=== PATIENT | female | born 1970 | race Caucasian/White ===

== ENCOUNTER 2016-12-06 21:02 | Emergency (ER) | payer OTHER ==
[2016-12-06 23:47] LABS: BASO % 0.3 % (0.1-1.2); EOS # 0.4 10_X3_uL (0.0-0.4); EOS % 4.6 % (0.7-5.8); GRAN # 5.6 10_X3_uL (1.6-6.1); GRAN % 64.2 % (34.0-71.1); HEMATOCRIT 31.3 % (34-45); LYMPH % 23.1 % (19.3-51.7); MEAN CORPUSCULAR HEMOGLOBIN 21.2 pg (27.0-33.0); MEAN CORPUSCULAR HGB CONC 29.4 g/dL (32.0-36.0); MEAN CORPUSCULAR VOLUME 72.3 fL (79-95); MEAN PLATELET VOLUME 9.6 fl (7.5-11.5); MONO # 0.7 10_X3_uL (0.2-0.9); MONO % 7.8 % (4.7-12.5); PLATELET COUNT 466 x10_3/uL (182-369); RED BLOOD COUNT 4.33 x10_6/uL (3.9-5.2); RED CELL DISTRIBUTION WIDTH 18.4 % (11.7-14.4); WHITE BLOOD COUNT 8.7 x10_3/uL (4.0-10.0)
[2016-12-06 23:57] LABS: BLOOD UREA NITROGEN 15 mg/dL (7-18); CARBON DIOXIDE 24 mmol/L (21-32); CREATININE 0.9 mg/dL (0.6-1.3); GLUCOSE,RANDOM 106 mg/dL (70-99); POTASSIUM 3.6 mmol/L (3.5-5.1); SODIUM 137 mmol/L (136-145)
[2016-12-06 23:59] LABS: HEMOGLOBIN 9.2 g/dL (11.2-15.7)
[2016-12-07 00:02] LABS: TROP-I < 0.30 NG/ML (0.00-0.30)
[2016-12-07 00:09] LABS: THYROID STIMULATING HORMONE 3.14 uIU/mL (0.34-4.82)
== END 2016-12-07 00:23 | disposition home or self-care (01) ==
LOC: ER 21:02
PROVIDERS: General Practice
DX: F41.9 Anxiety disorder, unspecified (principal); D64.9 Anemia, unspecified; R00.2 Palpitations; I10 Essential (primary) hypertension; Z79.899 Other long term (current) drug therapy
CPT/HCPCS: 36415; 80048; 80307; 81025; 84443; 85025; 93005; 99070; 99285-25